=== PATIENT | female | born 1960 | race American Indian/Alaskan Native ===

== ENCOUNTER 2017-12-03 12:38 | Emergency (ER) | payer SELFPAY ==
--- NOTE | 2017-12-03 13:28 | Emergency Department Report ---
ED General Adult HPI - General Chief complaint: Chest Pain Stated complaint: CHEST PAINS Time Seen by Provider: 12/03/17 13:27 Source: patient Mode of arrival: Ambulatory Limitations: No Limitations - History of Present Illness Initial comments: Patient says she ran out of blood pressure medicine for the past 3 months. Today she started having chest pain and she came to the emergency room for evaluation. Currently she says her chest pain has resolved. -: This morning Location: chest Radiation: non-radiation Severity scale (0 -10): 5 Quality: aching, sharp Consistency: now resolved Improves with: none Worsens with: none Associated Symptoms: denies other symptoms Treatments Prior to Arrival: none - Related Data Previous Rx's Medication Instructions Recorded Last Taken Type Aspirin [Aspir-Low] 81 mg PO DAILY 30 Days #30 12/03/17 Unknown Rx tablet. Lisinopril/Hydrochlorothiazide 1 tab PO QDAY 30 Days #30 tab 12/03/17 Unknown Rx [Zestoretic 20-25 mg] Allergies Allergy/AdvReac Type Severity Reaction Status Date / Time No Known Allergies Allergy Unverified 12/03/17 12:53 ED Review of Systems ROS: Stated complaint: CHEST PAINS Other details as noted in HPI Comment: All other systems reviewed and negative Constitutional: denies: chills, fever Eyes: denies: vision change ENT: denies: ear pain Respiratory: denies: cough, orthopnea, shortness of breath Cardiovascular: chest pain. denies: palpitations, edema Endocrine: no symptoms reported Gastrointestinal: denies: abdominal pain, nausea, vomiting, diarrhea Genitourinary: denies: urgency, frequency Musculoskeletal: denies: back pain, joint swelling Skin: denies: rash, change in color Neurological: denies: headache, weakness, numbness Psychiatric: denies: anxiety, auditory hallucinations Hematological/Lymphatic: denies: easy bleeding, easy bruising ED Past Medical Hx - Past Medical History Previous Medical History?: Yes Hx Hypertension: Yes Hx Congestive Heart Failure: Yes Hx Arthritis: Yes Additional medical history: hypoglycemia - Surgical History Past Surgical History?: Yes Hx Coronary Stent: Yes (x3) Hx Appendectomy: Yes Additional Surgical History: . partial hysterectomy - Social History Smoking Status: Never Smoker Substance Use Type: None - Medications Home Medications: Home Medications Medication Instructions Recorded Confirmed Last Taken Type Aspirin [Aspir-Low] 81 mg PO DAILY 30 Days #30 12/03/17 Unknown Rx tablet. Lisinopril/Hydrochlorothiazide 1 tab PO QDAY 30 Days #30 tab 12/03/17 Unknown Rx [Zestoretic 20-25 mg] ED Physical Exam - General Limitations: No Limitations General appearance: alert, in no apparent distress - Head Head exam: Present: atraumatic, normocephalic, normal inspection - Eye Eye exam: Present: normal appearance, PERRL, EOMI Pupils: Present: normal accommodation - ENT ENT exam: Present: normal exam, normal orophraynx, mucous membranes moist - Neck Neck exam: Present: normal inspection, full ROM. Absent: tenderness - Respiratory Respiratory exam: Present: normal lung sounds bilaterally. Absent: respiratory distress, wheezes, rales - Cardiovascular Cardiovascular Exam: Present: regular rate, normal rhythm, normal heart sounds - GI/Abdominal GI/Abdominal exam: Present: soft. Absent: distended, tenderness, guarding, normal bowel sounds - Extremities Exam Extremities exam: Present: normal inspection, full ROM, normal capillary refill - Back Exam Back exam: Present: normal inspection, full ROM. Absent: vertebral tenderness - Neurological Exam Neurological exam: Present: alert, oriented X3, CN II-XII intact - Psychiatric Psychiatric exam: Present: normal affect, normal mood - Skin Skin exam: Present: warm, dry, intact, normal color ED Course Vital Signs 12/03/17 12/03/17 12:53 13:36 Temperature 98.6 F Pulse Rate 88 62 Respiratory 18 Rate Blood Pressure 255/125 218/113 O2 Sat by Pulse 96 Oximetry ED Medical Decision Making - Lab Data Result diagrams: 12/03/17 13:52 12/03/17 13:58 - EKG Data -: EKG Interpreted by Oh EKG shows normal: sinus rhythm Rate: normal - EKG Data Interpretation: nonspecific ST-T wave samantha - Radiology Data Radiology results: report reviewed, image reviewed - Medical Decision Making Hypertensive Crisis Chest Pain Critical care attestation.: If time is entered above; I have spent that time in minutes in the direct care of this critically ill patient, excluding procedure time. ED Disposition Clinical Impression: Hypertensive crisis, Non compliance w medication regimen Chest pain Qualifiers: Chest pain type: unspecified Qualified Code(s): R07.9 - Chest pain, unspecified Disposition: DC-01 TO HOME OR SELFCARE Is pt being admited?: No Does the pt Need Aspirin: Yes Condition: Stable Instructions: Chest Pain (ED), Hypertension (ED), Hypertensive Crisis (ED), Chronic Hypertension (ED) Additional Instructions: Please followup with your primary doctor or Dr Gupta. Return to the ED if your condition worsens. Prescriptions: Aspirin [Aspir-Low] 81 mg PO DAILY 30 Days #30 tablet. Lisinopril/Hydrochlorothiazide [Zestoretic 20-25 mg] 1 tab PO QDAY 30 Days #30 tab Referrals: PRIMARY CARE, [Primary Care Provider] - 3-5 Days DARRELL GUPTA MD [Staff Physician] - 3-5 Days Time of Disposition: 17:52
[2017-12-03] MEDS: BABY ASPIRIN PO ONE (13:35)
[2017-12-03] MEDS: CATAPRES PO ONE (13:36)
[2017-12-03] MEDS: NITROSTAT SL ONE (13:40)
--- NOTE | 2017-12-03 13:53 | XRay Report ---
PORTABLE CHEST INDICATION: Chest pain. COMPARISON: None similar at this institution. FINDINGS: Portable, frontal chest radiograph demonstrates bronchovascular prominence centrally without overt cephalization. Prominent/enlarged [place], possibly pulmonary arterial hypertension and/or lymphadenopathy. Left hemidiaphragm minimally elevated. No large pleural effusions. EKG leads. Intact bones. CONCLUSION: Possible pulmonary arterial hypertension, as described. Please also correlate clinically, with prior relevant chest imaging if available or further with CT, if warranted. Thank you for the opportunity to participate in this patient's care.
[2017-12-03 14:04] LABS: Basophils % (Auto) 0.4 % (0.0-1.8); Eosinophils # (Auto) 0.5 K/mm3 (0.0-0.4); Hematocrit 37.4 % (30.3-42.9); Hemoglobin 11.7 gm/dl (10.1-14.3); Lymphocytes # (Auto) 1.8 K/mm3 (1.2-5.4); Lymphocytes % (Auto) 27.8 % (13.4-35.0); Mean Corpuscular HGB Conc 31 % (30-34); Mean Corpuscular Hemoglobin 24 pg (28-32); Mean Corpuscular Volume 75 fl (79-97); Monocytes # (Auto) 0.7 K/mm3 (0.0-0.8); Monocytes % (Auto) 10.3 % (0.0-7.3); Platelet Count 217 K/mm3 (140-440); Red Blood Count 4.97 M/mm3 (3.65-5.03)
[2017-12-03 14:13] LABS: INR 0.91 (0.87-1.13)
[2017-12-03 14:14] LABS: Partial Thromboplastin Time 28.4 Sec. (24.2-36.6)
[2017-12-03 14:20] LABS: Calcium 9.2 mg/dL (8.4-10.2)
[2017-12-03 15:28] LABS: Bacteria,Urine 1+ /HPF (Negative); Bilirubin,Urine NEG (Negative); Blood,Urine NEG (Negative); Color,Urine Straw (Yellow); Mucus,Urine FEW /HPF; Protein,Urine <15 mg/dL mg/dL (Negative); RBC,Urine < 1.0 /HPF (0.0-6.0); Urobilinogen,Urine < 2.0 mg/dL (<2.0)
[2017-12-03 15:38] LABS: Amphetamine Screen,Urine PRESUMPTIVE NEGATIVE; Benzodiazepines Screen,Urine PRESUMPTIVE NEGATIVE; Cannabinoid Screen,Urine PRESUMPTIVE NEGATIVE; Cocaine Screen,Urine PRESUMPTIVE NEGATIVE; Methadone Screen,Urine PRESUMPTIVE NEGATIVE; Opiate Screen,Urine PRESUMPTIVE NEGATIVE
[2017-12-03] MEDS: ZESTRIL PO ONE (16:04)
[2017-12-03 19:52] VITALS: BP 148/82
== END 2017-12-03 18:05 | disposition home or self-care (01) ==
LOC: ED 12:38
DX: I10 Essential (primary) hypertension (principal); R07.9 Chest pain, unspecified; Z91.14 Patient's other noncompliance with medication regimen; I50.9 Heart failure, unspecified
CPT/HCPCS: 36415; 71045; 80053; 80307; 81001; 84484; 85025; 85610; 85730; 93005; 93010

== ENCOUNTER 2019-01-30 17:09 | Inpatient (IN) | payer SELFPAY ==
--- NOTE | 2019-01-30 17:23 | Emergency Department Report ---
Chief Complaint: Chest Pain Stated Complaint: CHEST PAIN Time Seen by Provider: 01/30/19 17:19 MSE screening note: Focused history and physical exam performed. Due to findings the following was ordered: ED Disposition for MSE Condition: Stable
--- NOTE | 2019-01-30 17:24 | Event Note ---
ED Screening Note ED Screening Note: pt presents with left sided CP that began a couple of days ago pressure, heaviness states she has pain in her left shoulder +SOB +nausea +diaphoresis no emesis states she got stung by a bee on the way to the ER PMHx cardiac stents, CHF, HTN, HLD, osteoarthritis took her BP medicine this morning, metoprolol 25mg no allergies to meds non smoker occ drinker no drug use no recent travel This initial assessment/diagnostic orders/clinical plan/treatment(s) is/are subject to change based on patients health status, clinical progression and re- assessment by fellow clinical providers in the ED. Further treatment and workup at subsequent clinical providers discretion. Patient/guardian urged not to elope from the ED as their condition may be serious if not clinically assessed and managed. Initial orders include: cp protocol BP in triage 252/158 repeat 236/114
--- NOTE | 2019-01-30 18:12 | XRay Report ---
CHEST 2 VIEWS INDICATION: Chest Pain. COMPARISON: 12/03/2018. FINDINGS: Support devices: None. Heart: Within normal limits. Hilar enlargement has increased. Lungs/Pleura: No acute air space or interstitial disease. No significant pleural effusion. IMPRESSION: Increasing hilar enlargement. The differential diagnosis includes hilar adenopathy and p ulmonary artery. Hypertension. This could be better evaluated with contrast-enhanced CTA as clinicall y indicated. Signer Name: Torrey Pugh MD Signed: 01/30/2019 6:08 PM Workstation Name: [id number]
[2019-01-30 18:57] LABS: Basophils # (Auto) 0.1 K/mm3 (0.0-0.1); Basophils % (Auto) 0.9 % (0.0-1.8); Eosinophils # (Auto) 0.7 K/mm3 (0.0-0.4); Eosinophils % (Auto) 7.5 % (0.0-4.3); Hematocrit 36.2 % (30.3-42.9); Hemoglobin 12.1 gm/dl (10.1-14.3); Lymphocytes # (Auto) 2.2 K/mm3 (1.2-5.4); Lymphocytes % (Auto) 23.6 % (13.4-35.0); Mean Corpuscular HGB Conc 33 % (30-34); Mean Corpuscular Volume 76 fl (79-97); Monocytes # (Auto) 0.8 K/mm3 (0.0-0.8); Monocytes % (Auto) 8.7 % (0.0-7.3); Platelet Count 213 K/mm3 (140-440); Red Blood Count 4.74 M/mm3 (3.65-5.03); Red Cell Distribution Width 16.8 % (13.2-15.2)
[2019-01-30 19:11] LABS: INR 0.98 (0.87-1.13); Partial Thromboplastin Time 25.7 Sec. (24.2-36.6)
[2019-01-30 19:35] LABS: Alanine Aminotransferase 12 units/L (7-56); BUN/Creatinine Ratio 15; Blood Urea Nitrogen 22 mg/dL (7-17); Calcium 9.8 mg/dL (8.4-10.2); Hemolysis Index 10
[2019-01-30] MEDS ORDERED: ASPIRIN PO ONE (20:25)
[2019-01-30] MEDS ORDERED: APRESOLINE IV ONE (20:26)
--- NOTE | 2019-01-30 20:30 | Emergency Department Report ---
ED Chest Pain HPI - General Chief Complaint: Chest Pain Stated Complaint: CHEST PAIN Time Seen by Provider: 01/30/19 17:19 Source: patient Mode of arrival: Ambulatory Limitations: No Limitations - History of Present Illness Initial Comments: 58-year-old female with history of CAD with 7 stents, hypertension, presents to ED with complaint of chest pain 2-3 days. Patient states pain is left-sided, pressure-like, radiates into the left arm. Patient states pain is intermittent without any aggravating or alleviating factors. Patient reports associated nausea, diaphoresis, mild shortness of breath. Denies any leg pain or swelling. No chest pain at this time. Denies tobacco use. 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 Complaint: chest pain -: days(s) (2) Onset: during rest Pain Location: left chest Pain Radiation: LUE Severity: moderate Severity scale (0 -10): 0 Quality: pressure Consistency: intermittent Improves With: nothing Worsens With: nothing re: nausea, diaphoresis, dyspnea Other Symptoms: denies: cough, fever, leg swelling - Related Data Home Medications Medication Instructions Recorded Confirmed Last Taken Aspirin [Aspirin BABY CHEW TAB] 81 mg PO QDAY 01/30/19 01/30/19 Unknown Metoprolol [Lopressor] 25 mg PO BID 01/30/19 01/30/19 Unknown Allergies Allergy/AdvReac Type Severity Reaction Status Date / Time No Known Allergies Allergy Verified 01/30/19 22:11 Heart Score - HEART Score History: Moderately suspicious EKG: Significant ST-depression Age: 45-65 Risk factors: > 3 risk factors or hx of atherosclerotic disease Troponin: < normal limit HEART Score: 6 ED Review of Systems ROS: Stated complaint: CHEST PAIN Other details as noted in HPI Comment: All other systems reviewed and negative Constitutional: denies: chills, fever Respiratory: shortness of breath Cardiovascular: chest pain Gastrointestinal: nausea. denies: vomiting Musculoskeletal: other (denies leg pain or swelling) ED Past Medical Hx - Past Medical History Previous Medical History?: Yes Hx Hypertension: Yes Hx Congestive Heart Failure: Yes Hx Arthritis: Yes Additional medical history: hypoglycemia - Surgical History Past Surgical History?: Yes Hx Coronary Stent: Yes (x3) Hx Appendectomy: Yes Additional Surgical History: . partial hysterectomy - Social History Smoking Status: Never Smoker Substance Use Type: None - Medications Home Medications: Home Medications Medication Instructions Recorded Confirmed Last Taken Type Aspirin [Aspirin BABY CHEW TAB] 81 mg PO QDAY 01/30/19 01/30/19 Unknown History Metoprolol [Lopressor] 25 mg PO BID 01/30/19 01/30/19 Unknown History ED Physical Exam - General Limitations: No Limitations General appearance: alert, in no apparent distress - Head Head exam: Present: atraumatic, normocephalic - Eye Eye exam: Present: normal appearance - ENT ENT exam: Present: mucous membranes moist - Neck Neck exam: Present: normal inspection - Respiratory Respiratory exam: Present: normal lung sounds bilaterally. Absent: respiratory distress - Cardiovascular Cardiovascular Exam: Present: regular rate, normal rhythm - GI/Abdominal GI/Abdominal exam: Present: soft. Absent: distended, tenderness - Extremities Exam Extremities exam: Present: normal inspection. Absent: pedal edema, calf tenderness - Neurological Exam Neurological exam: Present: alert, oriented X3, CN II-XII intact. Absent: motor sensory deficit - Psychiatric Psychiatric exam: Present: normal affect, normal mood - Skin Skin exam: Present: warm, dry, intact, normal color ED Course Vital Signs 01/30/19 01/30/19 01/30/19 17:20 18:21 19:38 Temperature 98.7 F 98.1 F 98.8 F Pulse Rate 97 H 79 74 Respiratory 20 18 19 Rate Blood Pressure 236/114 201/97 Blood Pressure 201/108 [Right] O2 Sat by Pulse 99 98 100 Oximetry 01/30/19 01/30/19 01/30/19 20:25 20:41 21:19 Temperature Pulse Rate 67 67 78 Respiratory 19 16 Rate Blood Pressure 221/94 Blood Pressure 221/94 208/99 [Right] O2 Sat by Pulse 100 100 Oximetry 01/30/19 01/30/19 21:45 22:49 Temperature 98 F 98 F Pulse Rate 78 74 Respiratory 16 19 Rate Blood Pressure Blood Pressure 185/91 190/88 [Right] O2 Sat by Pulse 98 99 Oximetry ED Medical Decision Making - Lab Data Result diagrams: 01/30/19 18:28 01/30/19 18:28 - EKG Data -: EKG Interpreted by Md EKG shows normal: sinus rhythm, axis, intervals, QRS complexes Rate: normal - EKG Data When compared to previous EKG there are: changes noted (new lateral T wave changes) Interpretation: other (T wave inversions in lateral leads w/ minimal depression) - Radiology Data Radiology results: report reviewed, image reviewed - Medical Decision Making - 58 yo F with chest pain, hx CAD w/ stents - EKG shows lateral T wave inversions, trop negative x 2 - no chest pain at this time - BP 221/94, hydralazine given - will admit to hospitalist for further management - Differential Diagnosis ACS, CHF, hypertensive emergency Critical care attestation.: If time is entered above; I have spent that time in minutes in the direct care of this critically ill patient, excluding procedure time. ED Disposition Clinical Impression: Acute chest pain, Hypertensive emergency Disposition: DC-09 OP ADMIT IP TO THIS HOSP Is pt being admited?: Yes Condition: Stable Time of Disposition: 20:31
[2019-01-30] MEDS ORDERED: NITROSTAT SL PRN (22:06)
[2019-01-30] MEDS ORDERED: MORPHINE IV PRN (22:07)
[2019-01-30] MEDS ORDERED: ZOFRAN IV PRN (22:07)
[2019-01-30] MEDS ORDERED: TYLENOL PO PRN (22:07)
[2019-01-30] MEDS ORDERED: APRESOLINE IV PRN (22:09)
[2019-01-30] MEDS ORDERED: NACL 0.9% 250ML 250 ML IV ONE (22:15)
[2019-01-30] MEDS: HEPARIN SUB-Q SCH (22:20)
[2019-01-31 00:48] LABS: Creatine Kinase MB 1.6 ng/mL (0.0-4.0)
--- NOTE | 2019-01-31 06:15 | History and Physical Report ---
CHIEF COMPLAINT: Chest pain. HISTORY OF PRESENT ILLNESS: The patient is a 58-year-old female who said she has been having retrosternal and precordial chest pain going on for about 2 days. The patient describes pain as pressure-like and radiating to the left. Pain was intermittent in nature and was not affected by movement or breathing. The pain was associated with nausea, shortness of breath and diaphoresis. There is no history of associated dizziness or vomiting. PAST MEDICAL HISTORY: Pertinent for hypertension, congestive heart failure, arthritis, and hypoglycemia. PAST SURGICAL HISTORY: Pertinent for coronary artery stent placement, appendectomy, , and partial hysterectomy. FAMILY HISTORY: Family history was reviewed and noncontributory. SOCIAL HISTORY: The patient does not smoke, does not drink alcohol and does not use illicit drugs. MEDICATIONS: The patient is on aspirin 81 mg by mouth daily, Zestoretic 20/25 mg 1 by mouth daily. ALLERGIES: There are no known drug allergies. REVIEW OF SYSTEMS: CONSTITUTIONAL: There is no fever, no chills. Diaphoresis is present. HEENT: There is no headache or sore throat. CARDIOVASCULAR SYSTEM: There is chest pain but no orthopnea. RESPIRATORY SYSTEM: There is shortness of breath and no cough. GASTROINTESTINAL SYSTEM: There is nausea. There is no vomiting, no abdominal pain, diarrhea or constipation. NEUROLOGICAL SYSTEM: Dizziness is present and there is no altered mental status. MUSCULOSKELETAL SYSTEM: There is no joint pain or swelling. DERMATOLOGIC SYSTEM: There is no skin rash or itching. GENITOURINARY SYSTEM: There is no dysuria, hematuria, or flank pain. Rest of system review is normal. PHYSICAL EXAMINATION: GENERAL: At the time of exam, the patient was found to be alert, oriented x 3 and not in acute distress. VITAL SIGNS: At the initial time of presentation showed temperature of 98.7 degrees Fahrenheit, pulse of 97, respirations 20, blood pressure 236/114 and blood pressure later on came down to 181/88. HEENT: Show pupils to be equal, round, reactive to light and accommodating. Extraocular muscles are intact. NECK: Supple with no JVD or carotid bruit. CARDIOVASCULAR SYSTEM: Showed normal first and second heart sounds with no gallops or murmurs. RESPIRATORY SYSTEM: Showed good air entry on both sides of the lungs with no abnormal breath sounds. GASTROINTESTINAL SYSTEM: Show abdomen to be full, soft, nontender, with no organomegaly or rigidity. NEUROLOGIC: Shows no focal deficit. MUSCULOSKELETAL SYSTEM: Show no joint swelling or tenderness. DERMATOLOGICAL SYSTEM: Show no skin rash. GENITOURINARY SYSTEM: Showing no costovertebral angle tenderness. PERTINENT LABORATORY AND IMAGING STUDIES: The patient had chest x-ray done that shows increasing hilar enlargement with differential diagnosis suggestive of hilar adenopathy and pulmonary artery hypertension. Laboratory results, the patient has CBC done with normal white count, normal hemoglobin and normal hematocrit with CBC differential showing increasing monocyte count of 8.7 and elevated eosinophil count of 7.5%. The patient's coagulation studies were unremarkable and the patient's chemistry shows slight increase in BUN of 22 with slightly elevated creatinine level of 1.5 with rest of chemistry being unremarkable. The patient's troponin level came down normal. DIAGNOSES: 1. Chest pain. 2. Hypertensive crisis. 3. Acute kidney injury. PLAN OF CARE: 1. The patient will be admitted to telemetry. 2. The patient will have serial cardiac enzyme involving troponin, total CK and CK MB checked every 6 hours x 2 level. 3. The patient will have Nephrology consult with Dr. rodriguez because of acute kidney injury. 4. The patient will be on nitro paste half inch to anterior chest wall q.i.d. and will be on Nitrostat 0.4 mg sublingual every 5 minutes as needed for chest pain. 5. The patient will be on IV morphine 2 mg every 3 hours as needed for pain and IV Zofran 4 mg every 8 hours for nausea and vomiting. 6. The patient will remain n.p.o. for Lexiscan stress test in the morning. 7. The patient will be on IV hydralazine 10 mg every 4 hours as needed for elevated blood pressure of 150/90 or more. 8. The patient will be on aspirin 325 mg by mouth daily and will be on heparin 5000 units subcu q.12 hours for DVT prophylaxis. 9. The patient will be on home medications as shown in the medication reconciliation section. 10. The patient will be on oxygen via nasal cannula at 2 liter per minute. JOB# [id number] OCN/NTS MTDD
[2019-01-31 07:13] LABS: Creatine Kinase MB 1.6 ng/mL (0.0-4.0)
[2019-01-31] MEDS ORDERED: LEXISCAN IV ONE (08:23)
[2019-01-31] MEDS: HEPARIN SUB-Q SCH ×2 (09:17→21:25)
[2019-01-31] MEDS: ASPIRIN PO SCH (09:17)
[2019-01-31] MEDS: NITRO-BID 2% TP SCH ×4 (09:18→17:26)
[2019-01-31] MEDS ORDERED: COZAAR PO SCH (10:00)
[2019-01-31] MEDS ORDERED: LOPRESSOR PO SCH (10:00)
--- NOTE | 2019-01-31 10:06 | Consultation ---
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 and was told she only has one functional kidney but she does not know her baseline kidney function Past History Past Medical History: No medical history, hypertension, other (CKD) Medications and Allergies Allergies Allergy/AdvReac Type Severity Reaction Status Date / Time No Known Allergies Allergy Verified 01/30/19 22:11 Home Medications Medication Instructions Recorded Confirmed Last Taken Type Aspirin [Aspirin BABY CHEW TAB] 81 mg PO QDAY 01/30/19 01/30/19 Unknown History Metoprolol [Lopressor] 25 mg PO BID 01/30/19 01/30/19 Unknown History Active Meds: Active Medications Acetaminophen (Tylenol) 650 mg PO Q4H PRN PRN Reason: Headache Amlodipine Besylate (Norvasc) 10 mg PO QDAY [facility] Aspirin (Aspirin) 325 mg PO QDAY [facility] Last Admin: 01/31/19 09:17 Dose: 325 mg Documented by: Heparin Sodium (Porcine) (Heparin) 5,000 unit SUB-Q Q12HR [facility] Last Admin: 01/31/19 09:17 Dose: 5,000 unit Documented by: Hydralazine HCl (Apresoline) 10 mg IV Q4H PRN PRN Reason: Blood Pressure Last Admin: 01/31/19 09:15 Dose: 10 mg Documented by: Metoprolol Tartrate (Lopressor) 25 mg PO BID [facility] Last Admin: 01/31/19 09:18 Dose: 25 mg Documented by: Morphine Sulfate (Morphine) 2 mg IV Q3H PRN PRN Reason: Pain, Moderate (4-6) Nitroglycerin (Nitro-Bid 2%) 0.5 inch TP QIDNTG [facility]; Protocol Last Admin: 01/31/19 09:18 Dose: 0.5 inch Documented by: Nitroglycerin (Nitrostat) 0.4 mg SL .Q5MIN PRN PRN Reason: Chest Pain Ondansetron HCl (Zofran) 4 mg IV Q8H PRN PRN Reason: Nausea And Vomiting Regadenoson (Lexiscan) 0.4 mg IV ONCE ONE Stop: 01/31/19 08:24 Review of Systems All systems: negative (chest pain) Exam - Vital Signs Vital signs: Vital Signs Temp Pulse Resp BP Pulse Ox 98.7 F 97 H 20 236/114 99 01/30/19 17:20 01/30/19 17:20 01/30/19 17:20 01/30/19 17:20 01/30/19 17:20 - General Appearance General appearance: well-developed, well-nourished, appears stated age EENT: ATNC, PERRL, mucous membranes moist Neck: Present: neck supple Respiratory: Clear to Ascultation Heart: regular, S1S2 Gastrointestinal: Present: normoactive bowel sounds. Absent: tenderness, distended Integumentary: no rash, warm and dry Neurologic: no focal deficit, no asterixis, alert and oriented x3 Musculoskeletal: Present: other (no edema in BLE) Psychiatric: mood/affect appropriate, cooperative Results - Lab Results 01/30/19 18:28 01/30/19 18:28 Most recent lab results Calcium 9.8 mg/dL (8.4-10.2) 01/30/19 18:28 Assessment and Plan acute kidney injury vs. chronic kidney disease stage III due to HTN Chest pain HTN - baseline Cr is unknown - for now will hold losaran and start gentle IVF hydration with NS 50 cc/h - will check urine lytes protein and UA - will start Amlodipine - renally dose meds - strict I&O - daily weight Bryce Wilde Husam [phone]
[2019-01-31] MEDS ORDERED: NACL 0.9% 1000 ML 1,000 ML IV SCH (11:00)
[2019-01-31] MEDS: NORVASC PO SCH (14:29)
--- NOTE | 2019-01-31 14:43 | Consultation ---
History of Present Illness Consult date: 01/31/19 Consult reason: chest pain History of present illness: This is a 58-year old woman with a history of chronic renal failure and coronary artery disease who presents with complaints of chest pain. Patient reports she has not followed with a electric engine mechanic and does not have a pcp since moving to [place] over a year ago. Creatinine of 1.5. Cardiac enzymes were normal and her ECG is sinus rhythm with Twave abnormalities. No prior ECG available for comparison. Patient was admitted by the hospitalist service and underwent a stress thallium test today. Cardiac consultation has been requested. Past History Past Medical History: No medical history, hypertension, other (CKD) Medications and Allergies Allergies Allergy/AdvReac Type Severity Reaction Status Date / Time No Known Allergies Allergy Verified 01/30/19 22:11 Home Medications Medication Instructions Recorded Confirmed Last Taken Type Aspirin [Aspirin BABY CHEW TAB] 81 mg PO QDAY 01/30/19 01/30/19 Unknown History Metoprolol [Lopressor] 25 mg PO BID 01/30/19 01/30/19 Unknown History Active Meds: Active Medications Acetaminophen (Tylenol) 650 mg PO Q4H PRN PRN Reason: Headache Amlodipine Besylate (Norvasc) 10 mg PO QDAY [facility] Last Admin: 01/31/19 14:29 Dose: 10 mg Documented by: Aspirin (Aspirin) 325 mg PO QDAY [facility] Last Admin: 01/31/19 09:17 Dose: 325 mg Documented by: Heparin Sodium (Porcine) (Heparin) 5,000 unit SUB-Q Q12HR [facility] Last Admin: 01/31/19 09:17 Dose: 5,000 unit Documented by: Hydralazine HCl (Apresoline) 10 mg IV Q4H PRN PRN Reason: Blood Pressure Last Admin: 01/31/19 09:15 Dose: 10 mg Documented by: Sodium Chloride (Nacl 0.9% 1000 Ml) 1,000 mls @ 100 mls/hr IV DIRECT [facility] Metoprolol Tartrate (Lopressor) 25 mg PO BID [facility] Last Admin: 01/31/19 09:18 Dose: 25 mg Documented by: Morphine Sulfate (Morphine) 2 mg IV Q3H PRN PRN Reason: Pain, Moderate (4-6) Nitroglycerin (Nitro-Bid 2%) 0.5 inch TP QIDNTG [facility]; Protocol Last Admin: 01/31/19 14:29 Dose: 0.5 inch Documented by: Nitroglycerin (Nitrostat) 0.4 mg SL .Q5MIN PRN PRN Reason: Chest Pain Ondansetron HCl (Zofran) 4 mg IV Q8H PRN PRN Reason: Nausea And Vomiting Physical Examination Vital Signs Temp Pulse Resp BP Pulse Ox 98.7 F 97 H 20 236/114 99 01/30/19 17:20 01/30/19 17:20 01/30/19 17:20 01/30/19 17:20 01/30/19 17:20 General appearance: no acute distress HEENT: Positive: PERRL Neck: Positive: trachea midline Cardiac: Positive: Reg Rate and Rhythm Lungs: Positive: Decreased Breath Sounds Neuro: Positive: Grossly Intact Extremities: Absent: edema Results 01/30/19 18:28 01/30/19 18:28 Cardiac Enzymes 01/30/19 01/31/19 01/31/19 Range/Units 18:28 00:21 06:21 AST 17 (5-40) units/L CK-MB (CK-2) 1.6 1.6 (0.0-4.0) ng/mL Coagulation 01/30/19 Range/Units 18:28 PT 12.7 (12.2-14.9) Sec. INR 0.98 (0.87-1.13) APTT 25.7 (24.2-36.6) Sec. CBC 01/30/19 Range/Units 18:28 WBC 9.1 (4.5-11.0) K/mm3 RBC 4.74 (3.65-5.03) M/mm3 Hgb 12.1 (10.1-14.3) gm/dl Hct 36.2 (30.3-42.9) % Plt Count 213 (140-440) K/mm3 Lymph # 2.2 (1.2-5.4) K/mm3 [place] # 0.8 (0.0-0.8) K/mm3 Eos # 0.7 H (0.0-0.4) K/mm3 Baso # 0.1 (0.0-0.1) K/mm3 Comprehensive Metabolic Panel 01/30/19 Range/Units 18:28 Sodium 143 (137-145) mmol/L Potassium 4.1 (3.6-5.0) mmol/L Chloride 105.7 (98-107) mmol/L Carbon Dioxide 27 (22-30) mmol/L BUN 22 H (7-17) mg/dL Creatinine 1.5 H (0.7-1.2) mg/dL Glucose 104 H (65-100) mg/dL Calcium 9.8 (8.4-10.2) mg/dL AST 17 (5-40) units/L ALT 12 (7-56) units/L Alkaline Phosphatase 108 (35-129) units/L Total Protein 8.1 (6.3-8.2) g/dL Albumin 4.0 (3.9-5) g/dL Assessment and Plan Chest pain Chronic kidney disease Hypertension Hx of CAD Stress test reported as abnormal and she has been recommended for a cardiac cath. Creatinine of 1.5 today. Risk and benefits of the procedure has been fully discussed with the patient and she has agreed to proceed. IV normal saline hydration. For [facility] tomorrow morning.
[2019-01-31 17:28] LABS: Bilirubin,Urine NEG (Negative); Blood,Urine NEG (Negative); Color,Urine Yellow (Yellow); Mucus,Urine FEW /HPF; Protein,Urine <15 mg/dL mg/dL (Negative); RBC,Urine < 1.0 /HPF (0.0-6.0); Urobilinogen,Urine < 2.0 mg/dL (<2.0); WBC,Urine < 1.0 /HPF (0.0-6.0)
[2019-01-31 18:00] LABS: Creatinine,Urine 80.5 mg/dL (0.1-20.0); Protein/Creatinine Ratio,Urine 0.17
[2019-01-31 18:45] LABS: Creatinine,Urine 80.2 mg/dL (0.1-20.0)
--- NOTE | 2019-01-31 18:45 | Progress Note ---
Assessment and Plan - Patient Problems (1) Acute chest pain Current Visit: Yes Status: Acute Plan to address problem: Patient with acute chest pain had stress test today abnormal with reversible apical defect suspicious of ischemia. Patient scheduled for cardiac catheterization in a.m. (2) Hypertensive emergency Current Visit: Yes Status: Acute Plan to address problem: Patient hypertensive emergency. Somewhat improved but remains suboptimally controlled. Will most likely require more the current beta louie. Losartan has been discontinued in face of acute renal failure. Amlodipine begun will follow and titrate accordingly. (3) Acute kidney injury (ZACKERY) with acute tubular necrosis (ATN) Current Visit: Yes Status: Acute Plan to address problem: Most likely vasomotor nephropathy. Will proceed with gentle hydration repeat renal function in a.m. (4) Obesity Current Visit: Yes Status: Acute Plan to address problem: At present not motivated to really diet at this time. Educate on healthy lifestyle changes and exercise when possible. History Interval history: Patient is a 58-year-old history of hypertension coronary artery disease multiple stents in the past presents with chest pain 3 days. Patient also had a past history of malignant hypertension. At present patient hospital course uncomplicated. No chest pain. Hospitalist Physical - Constitutional Vitals: Temp Pulse Resp BP Pulse Ox 98.6 F 68 14 158/90 93 01/31/19 17:00 01/31/19 17:00 01/31/19 17:00 01/31/19 17:00 01/31/19 17:00 General appearance: Present: no acute distress - EENT Eyes: Present: PERRL, EOM intact ENT: hearing intact, clear oral mucosa, dentition normal - Neck Neck: Present: supple, normal ROM - Respiratory Respiratory: bilateral: CTA - Cardiovascular Rhythm: regular - Extremities Extremities: no ischemia, pulses intact, pulses symmetrical Peripheral Pulses: within normal limits - Abdominal General gastrointestinal: soft, non-tender, non-distended, normal bowel sounds, no hepatomegaly, no splenomegaly, no mass - Integumentary Integumentary: Present: clear, warm, dry - Psychiatric Psychiatric: appropriate mood/affect, intact judgment & insight, memory intact, cooperative - Neurologic Neurologic: CNII-XII intact, moves all extremities Results - Labs CBC & Chem 7: 01/30/19 18:28 01/30/19 18:28 Labs: Laboratory Last Values WBC 9.1 K/mm3 (4.5-11.0) 01/30/19 18: RBC 4.74 M/mm3 (3.65-5.03) 01/30/19 18:28 Hgb 12.1 gm/dl (10.1-14.3) 01/30/19 18: Hct 36.2 % (30.3-42.9) 01/30/19 18: MCV 76 fl (79-97) L 01/30/19 18: MCH 25 pg (28-32) L 01/30/19 18:28 MCHC 33 % (30-34) 01/30/19 18:28 RDW 16.8 % (13.2-15.2) H 01/30/19 18:28 Plt Count 213 K/mm3 (140-440) 01/30/19 18:28 Lymph % (Auto) 23.6 % (13.4-35.0) 01/30/19 18:28 [place] % (Auto) 8.7 % (0.0-7.3) H 01/30/19 18:28 Eos % (Auto) 7.5 % (0.0-4.3) H 01/30/19 18:28 Baso % (Auto) 0.9 % (0.0-1.8) 01/30/19 18:28 Lymph # 2.2 K/mm3 (1.2-5.4) 01/30/19 18:28 [place] # 0.8 K/mm3 (0.0-0.8) 01/30/19 18: Eos # 0.7 K/mm3 (0.0-0.4) H 01/30/19 18:28 Baso # 0.1 K/mm3 (0.0-0.1) 01/30/19 18:28 Seg Neutrophils % 59.3 % (40.0-70.0) 01/30/19 18: Seg Neutrophils # 5.4 K/mm3 (1.8-7.7) 01/30/19 18:28 PT 12.7 Sec. (12.2-14.9) 01/30/19 18:28 INR 0.98 (0.87-1.13) 01/30/19 18:28 APTT 25.7 Sec. (24.2-36.6) 01/30/19 18:28 Sodium 143 mmol/L (137-145) 01/30/19 18:28 Potassium 4.1 mmol/L (3.6-5.0) 01/30/19 18:28 Chloride 105.7 mmol/L (98-107) 01/30/19 18:28 Carbon Dioxide 27 mmol/L (22-30) 01/30/19 18:28 14 mmol/L 01/30/19 18:28 BUN 22 mg/dL (7-17) H 01/30/19 18:28 1.5 mg/dL (0.7-1.2) H 01/30/19 18:28 Estimated GFR 43 ml/min 01/30/19 18:28 15 % 01/30/19 18:28 Glucose 104 mg/dL (65-100) H 01/30/19 18:28 Calcium 9.8 mg/dL (8.4-10.2) 01/30/19 18:28 0.30 mg/dL (0.1-1.2) 01/30/19 18:28 AST 17 units/L (5-40) 01/30/19 18:28 ALT 12 units/L (7-56) 01/30/19 18:28 108 units/L (35-129) 01/30/19 18:28 93 units/L (30-135) 01/31/19 06:21 CK-MB (CK-2) 1.6 ng/mL (0.0-4.0) 01/31/19 06:21 CK-MB (CK-2) Rel Index 1.7 (0-4) 01/31/19 06:21 < 0.010 ng/mL (0.00-0.029) 01/31/19 06:21 8.1 g/dL (6.3-8.2) 01/30/19 18:28 4.0 g/dL (3.9-5) 01/30/19 18:28 1.0 % 01/30/19 18:28 Yellow (Yellow) 01/31/19 16:39 Clear (Clear) 01/31/19 16:39 7.0 (5.0-7.0) 01/31/19 16:39 Ur Specific [place] 1.012 (1.003-1.030) 01/31/19 16:39 <15 mg/dl mg/dL (Negative) 01/31/19 16:39 Neg mg/dL (Negative) 01/31/19 16:39 Neg mg/dL (Negative) 01/31/19 16:39 Neg (Negative) 01/31/19 16:39 Neg (Negative) 01/31/19 16:39 Neg (Negative) 01/31/19 16:39 < 2.0 mg/dL (<2.0) 01/31/19 16:39 Ur Leukocyte Esterase Neg (Negative) 01/31/19 16:39 < 1.0 /HPF (0.0-6.0) 01/31/19 16:39 < 1.0 /HPF (0.0-6.0) 01/31/19 16:39 U Epithel Cells (Auto) < 1.0 /HPF (0-13.0) 01/31/19 16:39 Few /HPF 01/31/19 16:39 80.5 mg/dL (0.1-20.0) H 01/31/19 Unknown Protein/Creatinin Ratio 0.17 01/31/19 Unknown 14 mg/dL (5-11.8) H 01/31/19 Unknown - Imaging and Cardiology EKG: image reviewed Chest x-ray: image reviewed Active Medications - Current Medications Current Medications: Generic Name Dose Route Start Last Admin Trade Name Freq PRN Reason Stop Dose Admin Acetaminophen 650 mg 01/30/19 22:07 Tylenol PO Q4H PRN Headache Amlodipine Besylate 10 mg 01/31/19 11:00 01/31/19 14:29 Norvasc PO 10 mg QDAY [facility] Administration Aspirin 325 mg 01/31/19 10:00 01/31/19 09:17 Aspirin PO 325 mg QDAY [facility] Administration Atorvastatin Calcium 40 mg 01/31/19 22:00 Lipitor PO QHS [facility] Heparin Sodium (Porcine) 5,000 unit 01/30/19 22:00 01/31/19 09:17 Heparin SUB-Q 5,000 unit Q12HR [facility] Administration Hydralazine HCl 10 mg 01/30/19 22:09 01/31/19 09:15 Apresoline IV 10 mg Q4H PRN Administration Blood Pressure Sodium Chloride 1,000 mls @ 100 mls/hr 01/31/19 15:00 Nacl 0.9% 1000 Ml IV DIRECT [facility] Metoprolol Tartrate 50 mg 01/31/19 20:00 Lopressor PO BIDDIAB [facility] Morphine Sulfate 2 mg 01/30/19 22:07 Morphine IV Q3H PRN Pain, Moderate (4-6) Nitroglycerin 0.5 inch 01/31/19 06:00 01/31/19 17:26 Nitro-Bid 2% TP 0.5 inch QIDNTG [facility] Administration Protocol Nitroglycerin 0.4 mg 01/30/19 22:06 Nitrostat SL .Q5MIN PRN Chest Pain Ondansetron HCl 4 mg 01/30/19 22:07 Zofran IV Q8H PRN Nausea And Vomiting
[2019-01-31] MEDS: LOPRESSOR PO SCH (21:26)
[2019-02-01] MEDS: NACL 0.9% 1000 ML 1,000 ML IV SCH ×2 (05:47→08:31)
[2019-02-01] MEDS: NITRO-BID 2% TP SCH ×4 (06:13→18:38)
[2019-02-01 06:42] LABS: Basophils # (Auto) 0.1 K/mm3 (0.0-0.1); Basophils % (Auto) 0.9 % (0.0-1.8); Eosinophils # (Auto) 0.7 K/mm3 (0.0-0.4); Eosinophils % (Auto) 7.6 % (0.0-4.3); Hematocrit 36.8 % (30.3-42.9); Hemoglobin 12.1 gm/dl (10.1-14.3); Lymphocytes # (Auto) 1.8 K/mm3 (1.2-5.4); Lymphocytes % (Auto) 20.7 % (13.4-35.0); Mean Corpuscular HGB Conc 33 % (30-34); Mean Corpuscular Volume 76 fl (79-97); Monocytes # (Auto) 0.8 K/mm3 (0.0-0.8); Monocytes % (Auto) 9.2 % (0.0-7.3); Platelet Count 217 K/mm3 (140-440); Red Blood Count 4.84 M/mm3 (3.65-5.03); Red Cell Distribution Width 17.2 % (13.2-15.2)
[2019-02-01 06:59] LABS: Calcium 9.5 mg/dL (8.4-10.2)
[2019-02-01 07:10] LABS: INR 1.06 (0.87-1.13)
[2019-02-01] MEDS ORDERED: ASPIRIN ONE (07:39)
[2019-02-01] MEDS ORDERED: NACL 0.9% 1000 ML 1,000 ML ONE (07:39)
[2019-02-01] MEDS ORDERED: LOPRESSOR ONE (07:43)
[2019-02-01] MEDS: LOPRESSOR PO SCH ×2 (07:44→18:38)
[2019-02-01] MEDS: ASPIRIN PO SCH ×2 (07:44→15:09)
[2019-02-01] MEDS ORDERED: HEPARIN/NS 5000 UNIT/500ML(CATH LAB) 1,000 ML IR ONE (10:19)
[2019-02-01] MEDS ORDERED: HEPARIN 10,000 UNITS/10 ML ONE (10:19)
[2019-02-01] MEDS ORDERED: NITROGLYCERIN SYRINGE 3 ML ONE (10:20)
[2019-02-01] MEDS ORDERED: CALAN ONE (10:20)
[2019-02-01] MEDS ORDERED: VERSED ONE (10:59)
[2019-02-01] MEDS ORDERED: SUBLIMAZE ONE (10:59)
[2019-02-01] MEDS: XYLOCAINE 2% INFILTRATI ONE ×2 (11:07→11:14)
[2019-02-01] MEDS ORDERED: APRESOLINE ONE (11:30)
[2019-02-01] MEDS ORDERED: ULTRAM PO PRN (11:34)
--- NOTE | 2019-02-01 13:13 | Cardiac Catherization Report ---
ATTENDING PHYSICIAN: Navdeep De Anda MD. PROCEDURES: 1. Left heart catheterization. 2. Left ventriculogram via hand injection. ESTIMATED BLOOD LOSS: Less than 30 mL. ESTIMATED CONTRAST USED: 70 mL. COMPLICATIONS: None. INDICATIONS FOR PROCEDURE: The patient has a known history of coronary artery disease, presenting with unstable angina. The patient has a history of previously placed stents, the last one was in 2016. PROCEDURE IN DETAIL: The patient was brought to the cardiac catheterization lab in usual fasting state. The patient was prepped and draped in usual sterile fashion. A 2 mL of 1% lidocaine was injected around the right radial artery. A 6-Ivorian sheath was placed via modified Seldinger technique. However, this access site was unable to be used, though the patient has significant tortuosity of the subclavian. Therefore, right common femoral artery access was gained via modified Seldinger technique and a 6-Ivorian sheath was placed. Next, the JR4 and JL4 catheters were advanced over the wire and engaged into the respective ostia and angiography was performed in multiple views. RESULTS: Left ventriculogram showed an ejection fraction of 65-70%. Left ventricular pressure measured 236/30 mmHg and end-diastolic pressure was 30 mmHg. Aortic pressure measured 232/111 mmHg. RESULTS: Left main coronary artery is a large caliber short vessel that bifurcates into left anterior descending and left circumflex coronary arteries. The left anterior descending coronary artery proximally shows some haziness just prior to the stent in the proximal segment. After the stent, the left anterior descending coronary artery gives off 2 moderate caliber diagonal branches, which have no significant disease. After the second diagonal branch, the left anterior descending coronary artery is occluded. Distal to the occlusion, the distal LAD is reconstituted via small collaterals. The collaterals come from both the LAD, left circumflex, and right coronary circulation. The left circumflex coronary artery is a large caliber codominant vessel that has luminal irregularities without significant stenosis. Left circumflex coronary artery gives off 2 moderate to large caliber obtuse marginal branches and have no significant disease. The right coronary artery is a large caliber codominant vessel with luminal irregularities without significant stenosis. ASSESSMENT: The patient is a 58-year-old female with known coronary artery disease, status post most recent PCI in 2016. The patient has single vessel coronary artery disease with occlusion of the left anterior descending coronary artery, after previous stent placement. Normal left ventricular function with an ejection fraction of 55-60%. RECOMMENDATIONS: The patient will not have any further procedures today due to elevated creatinine and likely need for MATTING PRESS TENDER of the LAD or consideration for bypass surgery. At this time, we will continue the patient on beta-louie, aspirin, and high intensity statin. We will plan for transfer for evaluation for MATTING PRESS TENDER versus CABG. JOB# [id number] /[place]ILTON
--- NOTE | 2019-02-01 13:45 | Progress Note ---
Assessment and Plan Acute kidney injury vs. chronic kidney disease stage III due to Hypertension - Renal function reviewed. Serum creatinine 1.4 today, yesterday's was 1.5 - Baseline serum creatinine is unknown - Losartan on hold - On NS@ 100 ml/hr - Urine lytes reviewed - Renally dose meds - Strict I&O monitoring - Obtain daily weights - Avoid nephrotoxic agents - Continue to monitor renal function Chest pain -S/P cardiac cath today -Received IV hydration overnight -Cardiology onboard Hypertension -On Amlodipine 10 mg po daily -On Metoprolol 50 mg po BID -Adjust regimen as needed Subjective Date of service: 02/01/19 Principal diagnosis: ARF on CKD Interval history: Patient seen sitting up in bed. Family at bedside. Objective - Vital Signs Vital signs: Vital Signs - 12hr 02/01/19 02/01/19 02/01/19 03:35 06:00 06:13 Temperature 98.4 F Pulse Rate 59 L 59 L 60 Respiratory 16 Rate Blood Pressure 141/77 141/77 O2 Sat by Pulse 93 Oximetry 02/01/19 02/01/19 07:44 12:37 Temperature Pulse Rate 66 Respiratory Rate Blood Pressure 205/97 O2 Sat by Pulse 100 Oximetry - General Appearance General appearance: well-developed, appears stated age, other (Obese) EENT: ATNC, PERRL, hearing intact, vision intact Neck: no JVD, supple Respiratory: Present: Decreased Breath Sounds Cardiology: S1S2 Gastrointestinal: normoactive bowel sounds Integumentary: warm and dry Neurologic: alert and oriented x3 Musculoskeletal: other (No edema) Psychiatric: mood/affect appropriate - Lab 02/01/19 05:30 02/01/19 05:30 Most recent lab results Calcium 9.5 mg/dL (8.4-10.2) 02/01/19 05:30 Phosphorus 3.60 mg/dL (2.5-4.5) 02/01/19 05:30 80.5 mg/dL (0.1-20.0) H 01/31/19 Unknown 96 mmol/L 01/31/19 16:39 14 mg/dL (5-11.8) H 01/31/19 Unknown Medications & Allergies - Medications Allergies/Adverse Reactions: Allergies No Known Allergies Allergy (Verified 01/30/19 22:11) Home Medications: Home Medications Medication Instructions Recorded Confirmed Last Taken Type Aspirin [Aspirin BABY CHEW TAB] 81 mg PO QDAY 01/30/19 01/30/19 Unknown History Metoprolol [Lopressor] 25 mg PO BID 01/30/19 01/30/19 Unknown History Active Medications: Generic Name Dose Route Start Last Admin Trade Name Alliq PRN Reason Stop Dose Admin Acetaminophen 650 mg 01/30/19 22:07 Tylenol PO Q4H PRN Headache Amlodipine Besylate 10 mg 01/31/19 11:00 01/31/19 14:29 Norvasc PO 10 mg QDAY [facility] Administration Aspirin 325 mg 01/31/19 10:00 02/01/19 07:44 Aspirin PO 325 mg QDAY [facility] Administration Atorvastatin Calcium 40 mg 01/31/19 22:00 01/31/19 21:26 Lipitor PO 40 mg QHS [facility] Administration Heparin Sodium (Porcine) 5,000 unit 01/30/19 22:00 01/31/19 21:25 Heparin SUB-Q 5,000 unit Q12HR [facility] Administration Hydralazine HCl 10 mg 01/30/19 22:09 01/31/19 09:15 Apresoline IV 10 mg Q4H PRN Administration Blood Pressure Sodium Chloride 1,000 mls @ 100 mls/hr 01/31/19 15:00 02/01/19 08:31 Nacl 0.9% 1000 Ml IV 100 mls/hr DIRECT [facility] Administration Metoprolol Tartrate 50 mg 01/31/19 20:00 02/01/19 07:44 Lopressor PO 50 mg BIDDIAB [facility] Administration Morphine Sulfate 2 mg 01/30/19 22:07 Morphine IV Q3H PRN Pain, Moderate (4-6) Nitroglycerin 0.5 inch 01/31/19 06:00 02/01/19 06:13 Nitro-Bid 2% TP Not Given QIDNTG [facility] Protocol Nitroglycerin 0.4 mg 01/30/19 22:06 Nitrostat SL .Q5MIN PRN Chest Pain Ondansetron HCl 4 mg 01/30/19 22:07 Zofran IV Q8H PRN Nausea And Vomiting Tramadol HCl 50 mg 02/01/19 11:34 Ultram PO Q4H PRN Pain, Mild (1-3)
[2019-02-01] MEDS: NORVASC PO SCH (15:10)
[2019-02-01] MEDS: HEPARIN SUB-Q SCH (15:10)
[2019-02-01 15:12] VITALS: BP 142/64
--- NOTE | 2019-02-01 17:51 | Discharge Summary ---
Providers - Providers Date of Admission: 01/30/19 22:00 Date of discharge: 02/01/19 Attending physician: ALISIA ROLAND 01/31/19 06:00 Consult to Physician [CONS] Routine Comment: Consulting Provider: MAYRA VEGA Physician Instructions: Reason For Exam: ZACKERY 01/31/19 08:44 Consult to Physician [CONS] Routine Comment: Consulting Provider: GERRY ROLLINS Physician Instructions: Reason For Exam: chest pain 02/01/19 11:34 Consult to Cardiac Rehabilitation [CONS] Routine Reason For Exam: Cardiac Rehab Evaluation [facility] Hospital[facility] Condition: Serious Pertinent studies: Cardiac catheterization which showed occlusion of the left anterior descending artery. Patient also had abnormal cardiac catheterization and chronic kidney disease with a baseline creatinine of 1.4. Hospital course: Patient 58-year-old with history of known coronary artery disease presents with chest pain workup was consistent with cardiac chest pain had cardiac catheterization normal ejection fraction however occlusion of left anterior descending artery. Plan was to transfer patient to [facility] to be a dilated by cardiothoracic surgery for possible bypass. Daughter called and patient also wanted to go to hospital in [place] to have surgical evaluation by their doctor. The risk of driving was explained to patient and daughter extensively. Wanted to drive patient to [place] to have cardiothoracic surgery of need be. Disposition: DC-30 STILL A PATIENT - Discharge Diagnoses (1) Acute chest pain Status: Acute Comment: Secondary to occlusion of left anterior descending. Patient family will drive her to [place] to have surgery by her doctor. Tinea beta louie aspirin agreesive statin therapy. (2) Hypertensive emergency Status: Acute Comment: Much improved with addition of metoprolol and amlodipine. We'll continue beta louie. (3) Acute kidney injury (ZACKERY) with acute tubular necrosis (ATN) Status: Acute Comment: A she has what appears to be chronic kidney disease with a baseline creatinine of 1.4. (4) Obesity Status: Acute Comment: Exercise decreased caloric intake. Core Measure Documentation - Palliative Care Palliative Care/ Comfort Measures: Not Applicable - Core Measures Any of the following diagnoses?: none Exam - Constitutional Vitals: Temp Pulse Resp BP Pulse Ox 98.4 F 66 16 142/64 100 02/01/19 03:35 02/01/19 07:44 02/01/19 03:35 02/01/19 15:10 02/01/19 12:37 General appearance: Present: no acute distress, well-nourished - EENT Eyes: Present: PERRL ENT: hearing intact, clear oral mucosa - Neck Neck: Present: supple, normal ROM - Respiratory Respiratory effort: normal Respiratory: bilateral: CTA - Cardiovascular Heart Sounds: Present: S1 & S2. Absent: rub, click - Extremities Extremities: pulses symmetrical, No edema Peripheral Pulses: within normal limits - Abdominal General gastrointestinal: Present: soft, non-tender, non-distended, normal bowel sounds Female genitourinary: Present: normal - Integumentary Integumentary: Present: clear, warm, dry - Musculoskeletal Musculoskeletal: gait normal, strength equal bilaterally - Psychiatric Psychiatric: appropriate mood/affect, intact judgment & insight - Neurologic Neurologic: CNII-XII intact, moves all extremities Plan Activity: no driving until cleared by PCP Weight Bearing Status: Full Weight Bearing Diet: low fat, low cholesterol, low salt Follow up with: JOSE SOLANOSEATTLE MD LYNN [Primary Care Provider] - 7 Days Prescriptions: Aspirin 325 mg PO QDAY #30 tablet AtorvaSTATin [Lipitor] 40 mg PO QHS #30 tablet Metoprolol [Lopressor TAB] 50 mg PO BIDDIAB #60 tablet Nitroglycerin [Nitrostat] 0.4 mg SL .Q5MIN PRN #14 tablet PRN Reason: Chest Pain amLODIPine [Norvasc] 10 mg PO QDAY #30 tablet traMADol [Ultram 50 MG tab] 50 mg PO Q4H PRN #30 tablet PRN Reason: Pain, Mild (1-3)
--- NOTE | 2019-02-02 04:29 | Treadmill Report ---
STRESS TEST REPORT FINDINGS: Resting images revealed fairly homogeneous radioisotope activity. On post-Lexiscan, there was diminished uptake in the septum, the apex, and the proximal inferior wall. Gated scan revealed ejection fraction of 68% with hypokinesis of apex and proximal septum. IMPRESSION: This test is positive for inferoapical and septal ischemia of moderate severity. JOB# [id number] [place]
== END 2019-02-01 18:46 | disposition home or self-care (01) | DRG 286 ==
LOC: ED 17:09 → 4A 22:00
PROVIDERS: ADMIT Internal Medicine; ATTEND Internal Medicine
PROC: 4A023N7 Measurement of Cardiac Sampling and Pressure, Left Heart, Percutaneous Approach (ICD-10-PCS; principal; 2019-02-01)
PROC: B2111ZZ Fluoroscopy of Multiple Coronary Arteries using Low Osmolar Contrast (ICD-10-PCS; 2019-02-01)
PROC: B2151ZZ Fluoroscopy of Left Heart using Low Osmolar Contrast (ICD-10-PCS; 2019-02-01)
DX: I25.10 Atherosclerotic heart disease of native coronary artery without angina pectoris (principal); N17.0 Acute kidney failure with tubular necrosis; I16.9 Hypertensive crisis, unspecified; I16.1 Hypertensive emergency; I13.0 Hypertensive heart and chronic kidney disease with heart failure and stage 1 through stage 4 chronic kidney disease, or unspecified chronic kidney disease; I50.9 Heart failure, unspecified; E78.5 Hyperlipidemia, unspecified; M19.90 Unspecified osteoarthritis, unspecified site; N18.9 Chronic kidney disease, unspecified; E66.9 Obesity, unspecified; Z68.33 Body mass index [BMI] 33.0-33.9, adult; Z90.49 Acquired absence of other specified parts of digestive tract; Z90.710 Acquired absence of both cervix and uterus; Z95.5 Presence of coronary angioplasty implant and graft
CPT/HCPCS: 36415; 71046; 78452; 80048; 80053; 81001; 82550; 82553; 82570; 82962; 84100; 84156; 84300; 84484; 85025; 85610; 85730; 93005; 93010; 93017; 93458; 96372; 96374; G0378; A9270-GY; A9502; C1760; C1887; C1894; J0360; J1644; J2250; J2785; J3010; J7030; J7050; Q9967